=== PATIENT | female | born 1965 | race Caucasian/White ===

== ENCOUNTER 2021-03-17 07:59 | Emergency (ER) | payer OTHER ==
[~2021-03-17] VITALS: Ht 170.2 cm; Wt 86.2 kg
[2021-03-17 08:22] VITALS: BP 157/84
--- NOTE | 2021-03-17 08:25 | NUR ---
PT TAKEN TO XRAY VIA W/C
--- NOTE | 2021-03-17 08:25 | NUR ---
Tiffanie emerson in [facility] - 03/17/21 at 0825 by JF Patient transported to [facility] by wheelchair.
--- NOTE | 2021-03-17 08:32 | NUR ---
Patient transported to bed 10 from [facility] by wheelchair.
--- NOTE | 2021-03-17 08:39 | NUR ---
55 y/o F BIB self c/o L ankle pain s/p mechanical trip and fall. Patient A&Ox4, ambulatory, reports she was walking to work and states "she tripped over a pebble causing her to L ankle to twist outward" Patient reports 5/10, pressure/constant, non-radiating pain. Denies any medications prior to arrival. Denies LOC, chest pain, dizziness, head/neck/back pain, other extremity pain. Bed locked in lowest position, side rails x 1. Ice pack applied. PMH: HTN A: PCN, lidocaine, sulfa
--- NOTE | 2021-03-17 08:39 | NUR ---
Dr. Matias is evaluating patient at bedside.
[2021-03-17] MEDS ORDERED: BACITRACIN OINT 500 UNITS/GM PKT TP ONE (08:40)
[2021-03-17] MEDS ORDERED: KETOROLAC 30 MG/ML VIAL IM ONE (08:40)
[2021-03-17] MEDS ORDERED: ACETAMINOPHEN EXTRA STRENGTH 500 MG TAB PO ONE ×2 (08:45→08:55)
--- NOTE | 2021-03-17 08:49 | NUR ---
Signature received for TDAP consent form
[2021-03-17] MEDS ORDERED: IBUP-2213 PO (09:17)
[2021-03-17 09:28] VITALS: BP 157/84
== END 2021-03-17 09:28 | disposition home or self-care (01) ==
LOC: MED 07:59
DX: S93.492A Sprain of other ligament of left ankle, initial encounter (principal); W19.XXXA Unspecified fall, initial encounter; Y93.89 Activity, other specified; Y92.89 Other specified places as the place of occurrence of the external cause; Y99.8 Other external cause status
CPT/HCPCS: 73610; 90471; 90715; 99283; J1885